=== PATIENT | female | born 1985 | race Caucasian/White ===

== ENCOUNTER 2016-06-21 03:49 | Emergency (ER) | payer OTHER ==
[~2016-06-21] VITALS: Ht 154.9 cm; Wt 76.6 kg
[~2016-06-21 03:49] MED LIST: ADAL1INJ SQ; ALBUAER2 INH; BACL10TA PO; CLON1TAB3 PO; GABA-112 PO; OXYC-643 PO
[2016-06-21 03:56] VITALS: TEMP 36.3; Ht 154.9 cm; Wt 76.6 kg
[2016-06-21] MEDS ORDERED: GABA-113 PO (04:58)
[2016-06-21] MEDS ORDERED: OXYC-57 PO (04:59)
[2016-06-21] MEDS ORDERED: ADAL40KI SQ (05:01)
[2016-06-21 05:12] VITALS: BP 122/75; PULSE 76; O2SAT 96
--- NOTE | 2016-06-21 07:00 | EMERGENCY ROOM VISIT NOTE ---
History First contact with patient: 04:00 Chief Complaint: SWELLING TO EXTREMITY Stated Complaint: SWELLING IN LFT LEG MAY PAIN History of Present Illness The patient is a 31 year old female who presents to the Emergency Room with complaints of swelling to her left lower extremity. The patient states this has been going off-and-on for the past several weeks. She became worried that she may have a blood clot, bring her to the ER today. She does not have chest pain or shortness of breath. She does not have a history of DVT or PE. No recent travel history. No family history of coagulopathy. She rates her discomfort a /10. Review of Systems More than 10 systems were reviewed and otherwise negative with the exception of history of present illness. Past Medical/Surgical History Medical Problems: (1) Abdominal cramping (2) Abdominal pain (3) Abdominal pain (4) Ankle sprain (5) Back strain (6) Bronchitis (7) Dental caries (8) Dry socket (9) Dysmenorrhea (10) Dysuria (11) demise (12) Headache (13) Hemorrhoid (14) HTN (hypertension) (15) Low back pain (16) Pain due to dental caries (17) Pain due to dental caries (18) Pain, dental (19) Pneumonia (20) (21) Pyelonephritis (22) Thermal burn (23) Threatened (24) Urinary tract infection (25) Urticaria (26) Vaginal bleeding (27) Vaginal bleeding (28) Vaginal bleeding in Surgical Problems: (1) History of cholecystectomy Family History FHx: cancer FHx: diabetes FHx: gallbladder disease FHx: heart disease FHx: hypertension Social History Smoking Status: Current Every Day Smoker Alcohol Use: none Drug Use: none Marital Status: Housing Status: lives with family Occupation Status: employed Current/Historical Medications Scheduled Adalimumab (Humira Pen), 40 MG SQ [id number] Gabapentin (Neurontin), 600 MG PO TID Oxycodone/Acetaminophen 5MG/325MG (Percocet 5MG/325MG), 2 TABLETS PO QID Allergies Coded Allergies: Ketorolac Tromethamine (Verified Allergy, Intermediate, VOMITING, 11/14/15) BEE STING (Verified Allergy, Unknown, ., 11/14/15) Penicillins (Verified Allergy, Unknown, ., 11/14/15) Physical Exam Vital Signs Date Time Temp Pulse Resp B/P Pulse Ox O2 Delivery O2 Flow Rate FiO2 06/21/16 05:12 76 20 122/75 96 06/21/16 03:56 36.3 92 20 113/60 97 Room Air Pain Rating (0-10): 0 Physical Exam VITALS: Vitals are noted on the nurse's note and reviewed by myself. Vital signs stable. GENERAL: Well-developed, well-nourished, white female, who is in no acute distress and resting comfortably. Patient is cooperative with the examination. HEAD: Normocephalic atraumatic. HEART: Regular rate and rhythm without murmurs gallops or rubs. LUNGS: Clear to auscultation bilaterally without wheezes, rales or rhonchi. No retractions or accessory muscle use. MUSCULOSKELETAL: No muscle atrophy, erythema, or edema noted. Full range of motion without joint tenderness in all extremities. No tenderness to palpation. Normal gait. Strength 5/5 throughout. Medical Decision & Procedures ER Provider Diagnostic Interpretation: Preliminary Findings Only See Final Report For Complete Findings US VENOUS LEFT LOWER EXTREMITY: No evidence of deep vein thrombosis. Fluid collection left popliteal fossa measuring 3.0 x 0.6 x 1.7 cm, possibly a popliteal cyst. ED Course Physical exam and history were performed. Nursing notes and EMR were reviewed. Patient appears to have reports of leg swelling for the past few weeks. Ultrasound was performed does not show evidence of a DVT or other significant findings. The patient does not have chest pain or shortness of breath. She appears well for discharge home. She was asked to follow with her primary care physician with any ongoing or persistent symptoms. She is otherwise invited back to the ER with any new, worsening, or concerning symptoms. The chart was completed utilizing [employer] Voice Recognition Software. Grammatical errors, random word insertions, pronoun errors, and incomplete sentences are an occasional consequence of this system due to software limitations, ambient noise, and hardware issues. Any formal questions or concerns about the content, text, or information contained within the body of this dictation should be directly addressed to the provider for clarification. . Medical Decision Differential diagnosis: Etiologies such as DVT, musculoskeletal, infection, joint effusion, trauma, lymphedema, idiopathic, CHF, as well as others were entertained.. Impression Primary Impression: Swelling of left lower extremity Departure Information Dispostion Home / Self-Care Condition GOOD Forms HOME CARE DOCUMENTATION FORM, IMPORTANT VISIT INFORMATION Patient Instructions My [facility] Additional Instructions You were seen and evaluated today on an emergency basis only. This is not a substitute for, or an effort to provide, complete comprehensive medical care. It is not possible to recognize and treat all injuries or illnesses in a single emergency department visit. For this reason it is recommended that you followup with your primary care physician with any ongoing or persistent symptoms. You are welcome to return to the emergency department anytime with new, worsening, or concerning symptoms.
--- NOTE | 2016-06-21 07:03 | DIAGNOSTIC IMAGING REPORT ---
Venous Doppler left leg LEFT VENOUS DOPP LOWER EXT UNILAT CLINICAL HISTORY: left leg swelling pain. Edema. TECHNIQUE: Venous Doppler COMPARISON STUDY: None FINDINGS: Negative study IMPRESSION: Negative study Electronically signed by: Wily Carrillo M.D. 06/21/2016 7:02 AM Dictated Date/Time: 06/21/2016 7:01 AM
== END 2016-06-21 05:22 | disposition home or self-care (01) ==
LOC: C.EDB 03:52 → C.EDA 05:22
DX: R22.42 Localized swelling, mass and lump, left lower limb (principal); I10 Essential (primary) hypertension; F17.200 Nicotine dependence, unspecified, uncomplicated; Z87.440 Personal history of urinary (tract) infections; Z90.49 Acquired absence of other specified parts of digestive tract; Z79.899 Other long term (current) drug therapy; Z88.0 Allergy status to penicillin; Z88.8 Allergy status to other drugs, medicaments and biological substances; Z91.030 Bee allergy status; Z80.9 Family history of malignant neoplasm, unspecified; Z83.3 Family history of diabetes mellitus; Z83.79 Family history of other diseases of the digestive system; Z82.49 Family history of ischemic heart disease and other diseases of the circulatory system

== ENCOUNTER → 2016-09-25 | Outpatient (CLI) | payer OTHER ==
[~2016-09-25] MED LIST changes: -ADAL1INJ SQ; +ADAL40KI SQ; -ALBUAER2 INH; +AZIT250T PO; -BACL10TA PO; -CLON1TAB3 PO; -GABA-112 PO; +GABA-113 PO; +OXYC-57 PO; -OXYC-643 PO
[2016-09-25 16:39] LABS: BASO % 0.5 %; BASO ABS # 0.04 K/uL (0-0.2); COMPLETE YES; EOS % 2.6 %; HEMATOCRIT 43.9 % (37-47); IG% 0.2 %; LYMPH % 21.5 %; MEAN CELL VOLUME 90.3 fL (80-100); MEAN CORPUSCULAR HEMOGLOBIN 29.6 pg (25-34); MEAN CORPUSCULAR HGB CONC 32.8 g/dl (32-36); MEAN PLATELET VOLUME 10.3 fL (7.4-10.4); MONO % 7.3 %; NEUT % 67.9 %; PLATELET COUNT 199 K/uL (130-400); RED BLOOD COUNT 4.86 M/uL (4.2-5.4); WHITE BLOOD COUNT 8.39 K/uL (4.8-10.8)
== END | disposition home or self-care (01) ==
LOC: C.LAB 16:11
PROVIDERS: ATTEND Physician Assistant Medical
DX: Z01.812 Encounter for preprocedural laboratory examination (principal)

== ENCOUNTER 2016-09-27 00:46 | Emergency (ER) | payer OTHER ==
[~2016-09-27] VITALS: Ht 154.9 cm; Wt 77.7 kg
[~2016-09-27 00:46] MED LIST changes: -AZIT250T PO
[2016-09-27 00:51] VITALS: TEMP 36.7; Ht 154.9 cm; Wt 77.7 kg
[2016-09-27] MEDS ORDERED: ALUMINUM/MAGNESIUM SUSP 30 ML UDC PO STA (01:18)
[2016-09-27] MEDS ORDERED: LIDOCAINE HCL 2% VISC SOLN 20 ML UDC PO STA (01:18)
[2016-09-27] MEDS ORDERED: AZIT250T PO (01:40)
[2016-09-27] MEDS ORDERED: ALBUTEROL HFA 8 GM INHALER INH STA (01:41)
[2016-09-27] MEDS ORDERED: AZITHROMYCIN 250 MG TAB PO STA (01:41)
[2016-09-27] MEDS ORDERED: DEXAMETHASONE SOD INJ 10 MG/ML VIAL PO ONE (01:45)
[2016-09-27 01:53] VITALS: BP 120/86; PULSE 72; O2SAT 98
--- NOTE | 2016-09-27 04:33 | EMERGENCY ROOM VISIT NOTE ---
History First contact with patient: 01:10 Chief Complaint: COUGH Stated Complaint: SORE THROAT, FEVER, COUGH Nursing Triage Summary: patient states she wants to make sure she doesn't have strep throat History of Present Illness The patient is a 31 year old female who presents to the Emergency Room with complaints of Sore throat, cough, congestion for the past few days. Patient does smoke. Patient denies chest pain, dyspnea, headache, neck status, earache , abdominal pain, vomiting, diarrhea. She is tolerate by mouth fluids and food. Review of Systems See HPI for pertinent positives & negatives. A total of 10 systems reviewed and were otherwise negative. Past Medical/Surgical History Medical Problems: (1) Abdominal cramping (2) Abdominal pain (3) Abdominal pain (4) Ankle sprain (5) Back strain (6) Bronchitis (7) Dental caries (8) Dry socket (9) Dysmenorrhea (10) Dysuria (11) demise (12) Headache (13) Hemorrhoid (14) HTN (hypertension) (15) Low back pain (16) Pain due to dental caries (17) Pain due to dental caries (18) Pain, dental (19) Pneumonia (20) (21) Pyelonephritis (22) Thermal burn (23) Threatened (24) Urinary tract infection (25) Urticaria (26) Vaginal bleeding (27) Vaginal bleeding (28) Vaginal bleeding in Surgical Problems: (1) History of cholecystectomy Family History FHx: cancer FHx: diabetes FHx: gallbladder disease FHx: heart disease FHx: hypertension Social History Smoking Status: Current Every Day Smoker Alcohol Use: none Drug Use: none Marital Status: Housing Status: lives with family Occupation Status: employed Current/Historical Medications Scheduled Adalimumab (Humira Pen), 40 MG SQ [id number] Azithromycin (Zithromax), 250 MG PO DAILY Gabapentin (Neurontin), 600 MG PO TID Oxycodone/Acetaminophen 5MG/325MG (Percocet 5MG/325MG), 2 TABLETS PO QID Allergies Coded Allergies: Ketorolac Tromethamine (Verified Allergy, Intermediate, VOMITING, 11/14/15) BEE STING (Verified Allergy, Unknown, ., 11/14/15) Penicillins (Verified Allergy, Unknown, ., 11/14/15) Physical Exam Vital Signs Date Time Temp Pulse Resp B/P (MAP) Pulse Ox O2 Delivery O2 Flow Rate FiO2 09/27/16 01:53 72 16 120/86 98 09/27/16 00:51 36.7 65 16 116/70 99 Room Air Pain Rating (0-10): 0 Physical Exam VITALS: Vitals are noted on the nurse's note and reviewed by myself. Vital signs stable. GENERAL: Pleasant female, in no acute distress, nondiaphoretic, well-developed well-nourished. SKIN: The skin was without rashes, erythema, edema, or bruising. There is no tenting of the skin. Capillary reflex less than 2 seconds. HEAD: Normocephalic atraumatic. EARS: External auditory canals clear, tympanic membranes pearly ryan without erythema or effusion bilaterally. EYES: Pupils equal round and reactive to light and accommodation. Conjunctivae without injection, sclerae without icterus. Extraocular movements intact. NOSE: Patent, turbinates without inflammation or discharge. No sinus tenderness. MOUTH: Mucous membranes moist. Pharynx without erythema or exudate. Uvula midline. Airway patent. Tongue does not deviate. NECK: Supple without nuchal rigidity. No lymphadenopathy. No thyromegaly. Cervical spine is nontender. No JVD. HEART: Regular rate and rhythm without murmurs gallops or rubs. LUNGS: Clear to auscultation bilaterally without wheezes, rales or rhonchi. No dullness to percussion. No retractions or accessory muscle use. ABDOMEN: Positive bowel sounds x 4. Normal tympanic percussion. Soft, nontender, without masses or organomegaly. Cobb sign negative. No guarding or rebound tenderness. MUSCULOSKELETAL: No muscle atrophy, erythema, or edema noted. NEURO: Patient was alert and oriented to person place and time. Normal sensation to light and sharp touch. No focal neurological deficits. Medical Decision & Procedures Medications Administered Medications (Trade) Dose Ordered Sig/Jason Route Start Time Stop Time Status Last Admin Dose Admin Lidocaine HCl (Viscous Lidocaine 2% Soln) 10 ml NOW STAT PO 09/27/16 01:18 09/27/16 01:20 DC 09/27/16 01:30 10 ML Al Hydroxide/Mg Hydroxide (Maalox Susp) 30 ml NOW STAT PO 09/27/16 01:18 09/27/16 01:20 DC 09/27/16 01:30 30 ML Azithromycin (Zithromax Tab) 500 mg NOW STAT PO 09/27/16 01:41 09/27/16 01:42 DC 09/27/16 01:41 500 MG Albuterol (Ventolin Hfa Inhaler) 2 puffs ONE STAT INH 09/27/16 01:41 09/27/16 01:42 DC 09/27/16 01:41 2 PUFFS Dexamethasone Sodium Phosphate (Decadron Inj) 10 mg NOW ONCE PO 09/27/16 01:45 09/27/16 01:46 DC 09/27/16 01:45 10 MG ED Course Prior records/ancillary studies reviewed. Triage Nursing notes reviewed. The patient's history was concerning for a cough and sore throat. Differential diagnosis: Etiologies such as otitis, pneumonia, viral syndrome, tonsillitis, streptococcal pharyngitis, mononucleosis, peritonsillar abscess, retropharyngeal abscess, otitis, pneumonia, influenza, as well as others were entertained. ER treatment provided: Zithromax, GI cocktail On reassessment the patient felt better. Diagnostics interpreted by me: The labs revealed negative strep test and sent for culture Imaging studies: Chest x-ray with no acute consolidation, pneumothorax or free air per my interpretation This appears to be consistent with bronchitis. Patient is a smoker. I did cover her with antibiotics for possible atypical infections. Patient was counseled on the importance of avoiding smoking. Patient was neurovascularly and neurologically intact. Stable vital signs. Patient was advised to take medications as directed and to follow-up family care in a few days or here in the ER sooner for chest pain, difficulty breathing, high fevers, worsening signs or symptoms or as needed.By the evaluation outlined above emergent etiologies such as peritonsillar abscess, retropharyngeal abscess, otitis, pneumonia, meningitis, urinary tract infection, sepsis, bacteremia, as well as others were deemed relatively unlikely. Case reviewed with my attending. The pt informed about the findings as listed above. All questions were answered and pleased with the treatment. Return instructions were outlined and the patient was discharged in stable condition. Outpatient prescription management: Zithromax Referral: The patient was referred back to their primary care physician for follow-up in 2 to 3 days for a recheck of the current condition. Medical Decision As above Impression Primary Impression: Acute bronchitis Departure Information Dispostion Home / Self-Care Condition FAIR Prescriptions Azithromycin (Zithromax) 250 Mg Tab 250 MG PO DAILY for 4 Days, #4 TAB Prov: Colleen Singletary PA-C 09/27/16 Referrals Jama Ramey M.D. (PCP) Forms HOME CARE DOCUMENTATION FORM, IMPORTANT VISIT INFORMATION Patient Instructions Bronchitis Acute, Sore Throat - [facility], [facility] Additional Instructions Albuterol Inhaler: Take 2 puffs four times daily for five days, then as needed. Prednisone 50mg: Once daily until the prescription is finished. It is best to take this earlier in the day as some patients note occasional difficulty falling asleep when taken in the late evening. Azithromycin(Zithromax) 250mg: Take one a day for 4 additional days. All antibiotics can cause diarrhea. If this occurs and you feel worse or it does not resolve in 1-2 days follow up with your doctor or return to the Emergency Department as this could be signs of serious underlying problems. Any medication can cause an allergic reaction, stop the pills immediately and return to the ER for rash, hives, breathing difficulties, or swelling. Acetaminophen(Tylenol) may be used for fever or pain. Use 1000mg every six hours as needed. Avoid using more than 3000mg in a 24 hour period. (AND/OR) Ibuprofen(Motrin, Advil) may be used for fever or pain. Use 600mg every six hours as needed. Take with food. Avoid using more than 2400mg in a 24 hour period. Do not use 2400mg per day for more than three consecutive days without physician direction. Prolonged inappropriate use can lead to stomach upset or ulcers. Rest and drink plenty of fluids. Avoid smoke/smoking, fumes, dust, or any triggers in the past that may have affected your breathing. Continue current medications. Return to the ER for chest pain, difficulty breathing, fevers, vomiting, worsening of your condition, or as needed. Follow up with your primary physician this week for a recheck of your current condition. Problem Qualifiers Primary Impression: Acute bronchitis Bronchitis organism: unspecified organism Qualified Codes: J20.9 - Acute bronchitis, unspecified
--- NOTE | 2016-09-27 06:37 | DIAGNOSTIC IMAGING REPORT ---
CHEST 2 VIEWS ROUTINE CLINICAL HISTORY: cough/fever cough COMPARISON STUDY: 10/03/2015 FINDINGS: The bones soft tissues and hemidiaphragms are normal. The cardiomediastinal silhouette is normal. The lungs are clear. The pulmonary vasculature is normal. IMPRESSION: Negative chest. Electronically signed by: Wily Carrillo M.D. 09/27/2016 6:36 AM Dictated Date/Time: 09/27/2016 6:36 AM
== END 2016-09-27 01:56 | disposition home or self-care (01) ==
LOC: C.EDB 00:47 → C.EDA 01:56
DX: J20.9 Acute bronchitis, unspecified (principal); F17.200 Nicotine dependence, unspecified, uncomplicated; I10 Essential (primary) hypertension; Z83.3 Family history of diabetes mellitus; Z82.49 Family history of ischemic heart disease and other diseases of the circulatory system

== ENCOUNTER → 2016-11-01 | Outpatient (CLI) | payer OTHER ==
[2016-11-01 12:48] LABS: BASO % 0.4 %; BASO ABS # 0.03 K/uL (0-0.2); EOS % 1.8 %; HEMATOCRIT 45.9 % (37-47); IG% 0.1 %; LYMPH % 25.5 %; LYMPH ABS # 1.94 K/uL (1.2-3.4); MEAN CELL VOLUME 90.4 fL (80-100); MEAN CORPUSCULAR HEMOGLOBIN 31.1 pg (25-34); MEAN PLATELET VOLUME 10.5 fL (7.4-10.4); MONO % 7.6 %; NEUT % 64.6 %; PLATELET COUNT 235 K/uL (130-400); RED BLOOD COUNT 5.08 M/uL (4.2-5.4); WHITE BLOOD COUNT 7.61 K/uL (4.8-10.8)
[2016-11-01 13:01] LABS: COMPLETE YES; MEAN CORPUSCULAR HGB CONC 34.4 g/dl (32-36)
== END | disposition home or self-care (01) ==
LOC: C.LAB 12:04
PROVIDERS: ATTEND Physician Assistant Medical
DX: Z01.812 Encounter for preprocedural laboratory examination (principal)

== ENCOUNTER 2017-06-21 00:34 | Emergency (ER) | payer OTHER ==
[~2017-06-21] VITALS: Ht 154.9 cm; Wt 74.1 kg
[2017-06-21 00:38] VITALS: TEMP 36.4; Ht 154.9 cm; Wt 74.1 kg
[2017-06-21] MEDS ORDERED: LIDODERM (LIDOCAINE) PATCH 5% TD STA (01:23)
[2017-06-21] MEDS ORDERED: KETOROLAC TROMETHAMINE 60 MG/2 ML VIAL IM STA (01:23)
--- NOTE | 2017-06-21 01:32 | EMERGENCY ROOM VISIT NOTE ---
History Report prepared by Gaye: Duyen Lynn Under the Supervision of: Dr. Nolvia Norton D.O. First contact with patient: 01:02 Chief Complaint: BACK PAIN Stated Complaint: BACK PAIN, GOES DOWN INTO FOOT History of Present Illness The patient is a 32 year old female who presents to the Emergency Room with complaints of persistent back pain starting this morning. The patient has a history of 3 herniated discs and sciatica. She follows with pain management. She fell off her porch steps this morning and landed on her left side. No head injury or LOC. She has had increased back pain since her fall. No other new pain or injury. Her pain is across her lower back and goes down the back of her right leg to the knee. Her pain normally only goes down to her buttocks. She has some tingling in her toes which she has had before. She is having difficulty standing up straight because of the pain. She is having some cramping in her groin. She notes that she is due for her menstrual period. She denies any groin numbness or tingling. She denies any constipation or incontinence. She states that she has urinated less today. Several days ago, she had a feeling that she could not completely empty her bladder. She denies any fever, chills, or hematuria. She is on Percocet which she last took 3-4 hours ago. Source of History: patient Onset: this morning Position: back (lower) Symptom Intensity: 8/10 Quality: other (pain) Timing: other (persistent) Modifying Factors (Worsening): other (standing) Modifying Factors (Relieving): other (percocet) Associated Symptoms: + urinary symptoms, No fevers, No chills, No numbness Note: Pt denies constipation, incontinence. Review of Systems See HPI for pertinent positives & negatives. A total of 10 systems reviewed and were otherwise negative. Past Medical & Surgical Medical Problems: (1) Abdominal cramping (2) Abdominal pain (3) Abdominal pain (4) Ankle sprain (5) Back strain (6) Bronchitis (7) Dental caries (8) Dry socket (9) Dysmenorrhea (10) Dysuria (11) demise (12) Headache (13) Hemorrhoid (14) HTN (hypertension) (15) Low back pain (16) Pain due to dental caries (17) Pain due to dental caries (18) Pain, dental (19) Pneumonia (20) (21) Pyelonephritis (22) Thermal burn (23) Threatened (24) Urinary tract infection (25) Urticaria (26) Vaginal bleeding (27) Vaginal bleeding (28) Vaginal bleeding in Surgical Problems: (1) History of cholecystectomy Family History FHx: cancer FHx: diabetes FHx: gallbladder disease FHx: heart disease FHx: hypertension Social History Smoking Status: Current Every Day Smoker Marital Status: Housing Status: lives with family Current/Historical Medications Scheduled Adalimumab (Humira Pen), 40 MG SQ [id number] Gabapentin (Neurontin), 600 MG PO TID Oxycodone/Acetaminophen 5MG/325MG (Percocet 5MG/325MG), 2 TABLETS PO QID Allergies Coded Allergies: Ketorolac Tromethamine (Verified Allergy, Intermediate, VOMITING, 11/14/15) BEE STING (Verified Allergy, Unknown, ., 11/14/15) Penicillins (Verified Allergy, Unknown, ., 11/14/15) Physical Exam Vital Signs Date Time Temp Pulse Resp B/P (MAP) Pulse Ox O2 Delivery O2 Flow Rate FiO2 06/21/17 03:58 60 18 118/71 97 06/21/17 03:48 60 18 118/71 97 Room Air 06/21/17 02:34 74 18 97 Room Air 06/21/17 02:32 115/79 06/21/17 02:14 110/79 06/21/17 00:38 36.4 77 20 127/78 98 Room Air Physical Exam GENERAL: alert, well appearing, well nourished, no distress, non-toxic EYE EXAM: normal conjunctiva, PERRL and EOM's grossly intact OROPHARYNX: poor dentition, no exudate, no erythema, lips, buccal mucosa, and tongue normal and mucous membranes are moist NECK: supple, no nuchal rigidity, no adenopathy, non-tender LUNGS: Clear to auscultation. Normal chest wall mechanics HEART: no murmurs, S1 normal and S2 normal ABDOMEN: abdomen soft, non-tender, normo-active bowel sounds, no masses, no rebound or guarding. BACK: Back is symmetrical on inspection and there is no deformity, no stepoff, no midline tenderness, no CVA tenderness. Mild bilateral lumbar tenderness. No ecchymosis. SKIN: no rashes and no bruising UPPER EXTREMITIES: upper extremities are grossly normal. LOWER EXTREMITIES: No pitting edema. Mild pain with palpation of the left hip, no ecchymosis or deformity. NEURO EXAM: Normal sensorium, cranial nerves II-XII grossly intact, normal speech, no gross weakness of arms, no gross weakness of legs. Medical Decision & Procedures ER Provider Diagnostic Interpretation: Radiology results have been interpreted by the [facility] radiologist and reviewed by me. CT L Spine: Comparison: CT abdomen and pelvis 02/01/15. There are 5 [id number] lumbar vertebrae demonstrating normal lordosis and vertebral body height. Mild degenerative disc disease at L5-S1 with grade 1 retrolisthesis, similar to prior exam. Mild bilateral foraminal narrowing at this level, right greater than left. No evidence of acute fracture or subluxation. CT Pelvis: No evidence of acute fracture or malalignment. Laboratory Results Test 06/21/17 01:40 Urine Color DK YELLOW Urine Appearance CLOUDY (CLEAR) Urine pH 5.0 (4.5-7.5) Urine Specific [place] 1.026 (1.000-1.030) Urine Protein NEG (NEG) Urine Glucose (UA) NEG (NEG) Urine Ketones NEG (NEG) Urine Occult Blood NEG (NEG) Urine Nitrite NEG (NEG) Urine Bilirubin NEG (NEG) Urine Urobilinogen NEG (NEG) Urine Leukocyte Esterase NEG (NEG) Urine WBC (Auto) 1-5 /hpf (0-5) Urine RBC (Auto) 0-4 /hpf (0-4) Urine Hyaline Casts (Auto) 0 /lpf (0-5) Urine Epithelial Cells (Auto) >30 /lpf (0-5) Urine Bacteria (Auto) NEG (NEG) Urine Mucus PRESENT (NONE PRSENT) Urine Test NEG (NEG) Laboratory results per my review. Medications Administered Medications (Trade) Dose Ordered Sig/Jason Route Start Time Stop Time Status Last Admin Dose Admin Ketorolac Tromethamine (Toradol Inj) 60 mg NOW STAT IM 06/21/17 01:23 06/21/17 01:26 DC 06/21/17 01:59 60 MG Lidocaine (Lidoderm Patch 5%) 1 patch NOW STAT TD 06/21/17 01:23 06/21/17 01:26 DC 3/23/18 02:02 1 PATCH Ondansetron HCl (Zofran Odt) 4 mg ONE ONCE PO 06/21/17 02:45 06/21/17 02:46 DC 06/21/17 02:49 4 MG Famotidine (Pepcid Tab) 20 mg NOW ONCE PO 06/21/17 02:45 06/21/17 02:46 DC 06/21/17 03:00 20 MG Morphine Sulfate (MoRPHine SULFATE INJ) 8 mg NOW STAT IM 06/21/17 03:22 06/21/17 03:23 DC 06/21/17 03:47 8 MG ED Course 0112: The patient was evaluated in room A11B. A complete history and physical exam was performed. 0123: Lidocaine 1 patch TD, Toradol Inj 60 mg IM. 0245: Famotidine 20 mg PO, Zofran Odt 4 mg PO. 0318: Upon reevaluation, the patient is feeling better. I discussed the findings and the treatment plan with the patient. She verbalizes agreement and understanding. She was discharged home. 0322: Morphine Sulfate 8 mg IM. Medical Decision Differential diagnosis: Etiologies such as musculoskeletal, disc herniation, fracture, aortic disease, metastatic disease, cord compression, discitis, infection, renal colic, gastrointestinal, acute exacerbation of chronic back pain, sciatica, cauda equina, as well as others were entertained. Patient likely with acute exacerbation of chronic pain given slip and fall this morning. I do not suspect acute cord compression or other acute nerve injury. Imaging here otherwise reassuring, consistent likely with patient's chronic disease. Patient made aware that because she is seeing pain management she would not be given any additional prescriptions, patient verbalized understanding. Patient's vital signs otherwise stable, and exam did not reveal any other findings to suggest additional occult traumatic injury. Patient not on anticoagulation or antiplatelet therapy. Patient denied any other complaints. I have a low suspicion for any other acute spinal injury or acute disc herniation on top of what is already chronic. I do not suspect additional occult traumatic injury or intracranial hemorrhage. Patient able to ambulate her with a steady gait. Patient with no urinary retention, urinary specimen otherwise suboptimal but I do not suspect occult urinary tract infection or renal colic contributing to her exacerbation of back pain. Discussed with patient close follow-up with her biology specialist and pain management, discussed symptoms to watch and return for, she verbalized understanding and was agreeable with plan. Medication Reconcilliation Current Medication List: was personally reviewed by me Blood Pressure Screening Patient's blood pressure: Normal blood pressure Blood pressure disposition: Did not require urgent referral Impression Primary Impression: Strain of lumbar region Additional Impression: Low back pain Scribe Attestation The scribe's documentation has been prepared under my direction and personally reviewed by me in its entirety. I confirm that the note above accurately reflects all work, treatment, procedures, and medical decision making performed by me. Departure Information Dispostion Home / Self-Care Referrals Jama Ramey M.D. (PCP) Patient Instructions My [facility] Additional Instructions Please continue your regular medications as prescribed. Please continue your follow-up appointments with pain management and your biology specialist. If you have any worsening pain, increased weakness, increased numbness or tingling, difficulty urinating or having a bowel movement, develop fevers or chills, are unable to walk, you have any other new concerns, please return the emergency room. Problem Qualifiers Primary Impression: Strain of lumbar region Encounter type: initial encounter Qualified Codes: S39.012A - Strain of muscle, fascia and tendon of lower back, initial encounter Additional Impression: Low back pain Chronicity: chronic Back pain laterality: bilateral Sciatica presence: with sciatica Sciatica laterality: sciatica of right side Qualified Codes: M54.41 - Lumbago with sciatica, right side; G89.29 - Other chronic pain
[2017-06-21] MEDS ORDERED: ONDANSETRON 4MG OD TAB PO ONE (02:45)
[2017-06-21] MEDS ORDERED: FAMOTIDINE 20 MG TAB PO ONE (02:45)
[2017-06-21] MEDS ORDERED: MoRPHine SULFATE 10 MG/ML CARP/VIAL IM STA (03:22)
[2017-06-21 03:58] VITALS: BP 118/71; PULSE 60; O2SAT 97
--- NOTE | 2017-06-21 07:21 | DIAGNOSTIC IMAGING REPORT ---
LUMBAR SPINE CT CT DOSE: 1502.20 mGy.cm HISTORY: trauma, acute on chronic back pain TECHNIQUE: Multiaxial CT images of the lumbar spine were performed and reformatted in the sagittal and coronal plane without the use of contrast. A dose lowering technique was utilized adhering to the principles of ALARA. COMPARISON: None. FINDINGS: No fractures. 2 mm of retrolisthesis of L5 on S1. Paraspinal soft tissues are unremarkable. Focal central disc protrusion at L4-L5 resulting in mild central canal narrowing. Broad-based posterior disc bulge at L5-S1 also resulting in mild central canal narrowing. There is moderate disc space narrowing at L5-S1. Mild bilateral neural foraminal narrowing at L5-S1. IMPRESSION: 1. No fractures identified within the lumbar spine. 2. Moderate degenerative disc disease at L5-S1 with mild central canal and mild bilateral neural foraminal narrowing. 3. Focal central disc protrusion at L4-L5 resulting in mild central canal narrowing. Electronically signed by: Massimo Wayne M.D. 06/21/2017 7:19 AM Dictated Date/Time: 06/21/2017 7:16 AM
--- NOTE | 2017-06-21 07:33 | DIAGNOSTIC IMAGING REPORT ---
PELVIS NO IV/ORAL CONT (CT) HISTORY: 32 years-old Female trauma, left hip pain acute posttraumatic bilateral hip pain COMPARISON: Lumbar spine CT 06/21/2017, CT abdomen and pelvis 02/01/2015 TECHNIQUE: Multiple axial CT images of the pelvis were obtained without IV contrast. A dose lowering technique was used consistent with the principals of WALDO. FINDINGS: There are mild degenerative changes about the bilateral SI joints. Mild degenerative changes of the pubic symphysis. No acute fracture or dislocation identified. The bilateral femoral acetabular joints are located. The bilateral proximal femora appear intact without acute fracture identified. There is moderate disc space narrowing at L5-S1 with broad-based posterior disc bulge and posterior spondylitic spurring with mild facet arthrosis causing mild bilateral foraminal narrowing and mild central canal stenosis. Follicular changes of the ovaries. No acute process identified within the pelvis. Stool ball is noted within the rectum. Soft tissues are unremarkable. IMPRESSION: 1. No acute fracture or dislocation. 2. Moderate intervertebral disc space narrowing with broad-based posterior disc bulge and posterior spondylitic spurring at L5-S1 causing mild central canal and mild bilateral foraminal stenosis. 3. Mild degenerative changes of the SI joints. The above report was generated using voice recognition software. It may contain grammatical, syntax or spelling errors. Electronically signed by: Kendall Woodward M.D. 06/21/2017 7:32 AM Dictated Date/Time: 06/21/2017 7:24 AM
== END 2017-06-21 03:59 | disposition home or self-care (01) ==
LOC: C.EDB 00:37 → C.EDA 03:59
DX: S39.012A Strain of muscle, fascia and tendon of lower back, initial encounter (principal); W10.9XXA Fall (on) (from) unspecified stairs and steps, initial encounter; I10 Essential (primary) hypertension; F17.200 Nicotine dependence, unspecified, uncomplicated; Z87.39 Personal history of other diseases of the musculoskeletal system and connective tissue; Z88.6 Allergy status to analgesic agent; Z88.0 Allergy status to penicillin; Z91.030 Bee allergy status; Z83.3 Family history of diabetes mellitus; Z82.49 Family history of ischemic heart disease and other diseases of the circulatory system; Z83.79 Family history of other diseases of the digestive system